=== PATIENT | female | born 1990 | race American Indian/Alaskan Native ===

== ENCOUNTER 2017-06-19 13:30 | Emergency (ER) | payer OTHER ==
[2017-06-19 15:27] LABS: Bilirubin,Urine Negative (Negative); Blood,Urine Negative (Negative); Ketones,Urine Negative (Negative); Leukocyte Esterase,Urine Small (Negative); Nitrite,Urine Negative (Negative); Protein,Urine <15 mg/dL mg/dL (Negative); Urobilinogen,Urine < 2.0 mg/dL (<2.0)
[2017-06-19 15:35] LABS: Bacteria,Urine 1+ /HPF (Negative)
[2017-06-19 15:36] LABS: Mucus,Urine 1+ /HPF
[2017-06-19] MEDS ORDERED: NACL 0.9% 1000 ML 1,000 ML IV ONE (20:16)
[2017-06-19] MEDS ORDERED: TORADOL IV ONE (20:16)
--- NOTE | 2017-06-19 20:23 | Emergency Department Report ---
ED Abdominal Pain HPI - General Chief Complaint: Urogenital-Female Stated Complaint: MOUTH/PELVIS/BACK PAIN Time Seen by Provider: 06/19/17 20:12 Source: patient Mode of arrival: Ambulatory Limitations: No Limitations - History of Present Illness Initial Comments: This is a 27-year-old female nontoxic, well nourished in appearance, no acute signs of distress presents to the ED with c/o of abdominal pain, pelvic pain, back pain, and toothache. Patient stated has been having a toothache x2 months but denies following up with a dentist. Denies any facial swelling, drooling, difficulty breathing, pus or drainage. Patient describes lower pelvic/ abdominal and back pain as aching intermittently for 3 weeks. Patient denies any fever, chills, nausea, vomiting, chest pain, short of breath, stiff neck, bladder or bowel stability, hematuria, dysuria, polyuria, vaginal bleeding, vaginal discharge, headache, numbness or tingling. Patient denies any allergies. Denies past medical history. MD Complaint: abdominal pain -: month(s) Radiation: none Migration to: no migration Severity: mild Severity scale (0 -10): 8 Quality: aching Consistency: constant Improves With: nothing Worsens With: nothing Associated Symptoms: denies other symptoms. denies: nausea, vomiting, diarrhea , fever, chills, constipation, dysuria, hematemesis, hematochezia, melena, hematuria, anorexia, syncope - Related Data Previous Rx's Medication Instructions Recorded Last Taken Type Amoxicillin/K Clav Tab [Augmentin 1 tab PO Q12HR #20 tab 06/19/17 Unknown Rx 875 mg] Chlorhexidine Mouthwash [Peridex] 15 ml MM BID 10 Days bottle 06/19/17 Unknown Rx Ibuprofen [Motrin] 600 mg PO Q8H PRN #30 tablet 06/19/17 Unknown Rx Allergies Allergy/AdvReac Type Severity Reaction Status Date / Time No Known Allergies Allergy Verified 06/19/17 20:49 ED Review of Systems ROS: Stated complaint: MOUTH/PELVIS/BACK PAIN Other details as noted in HPI Constitutional: denies: chills, fever Eyes: denies: eye pain, eye discharge, vision change ENT: dental pain. denies: ear pain, throat pain Respiratory: denies: cough, shortness of breath, wheezing Cardiovascular: denies: chest pain, palpitations Endocrine: no symptoms reported Gastrointestinal: abdominal pain, other (pelvic pain). denies: nausea, diarrhea Genitourinary: denies: urgency, dysuria, discharge Musculoskeletal: back pain. denies: joint swelling, arthralgia Skin: denies: rash, lesions Neurological: denies: headache, weakness, paresthesias Psychiatric: denies: anxiety, depression Hematological/Lymphatic: denies: easy bleeding, easy bruising ED Past Medical Hx - Past Medical History Previous Medical History?: No - Surgical History Past Surgical History?: No - Social History Smoking Status: Never Smoker Substance Use Type: None - Medications Home Medications: Home Medications Medication Instructions Recorded Confirmed Last Taken Type Amoxicillin/K Clav Tab [Augmentin 1 tab PO Q12HR #20 tab 06/19/17 Unknown Rx 875 mg] Chlorhexidine Mouthwash [Peridex] 15 ml MM BID 10 Days bottle 06/19/17 Unknown Rx Ibuprofen [Motrin] 600 mg PO Q8H PRN #30 tablet 06/19/17 Unknown Rx ED Physical Exam - General Limitations: No Limitations General appearance: alert, in no apparent distress - Head Head exam: Present: atraumatic, normocephalic - Eye Eye exam: Present: normal appearance, PERRL, EOMI. Absent: scleral icterus, conjunctival injection, nystagmus, periorbital swelling, periorbital tenderness Pupils: Present: normal accommodation - ENT ENT exam: Present: mucous membranes moist, TM's normal bilaterally, normal external ear exam - Expanded ENT Exam Expanded Mouth exam: Present: normal external inspection, tongue normal. Absent: drooling, trismus, muffled voice, tongue elevation, laceration Teeth exam: Present: dental caries, fractured tooth # (17), dental tenderness # (17), gingival enlargement, other (No abscess or swelling noted) 1 - Fractured, Dental Tenderness Throat exam: Positive: normal inspection. Negative: tonsillar erythema, tonsillomegaly, tonsillar exudate, R peritonsillar mass, L peritonsillar mass - Neck Neck exam: Present: normal inspection, full ROM. Absent: tenderness, meningismus, lymphadenopathy, thyromegaly - Respiratory Respiratory exam: Present: normal lung sounds bilaterally. Absent: respiratory distress, wheezes, rales, rhonchi, stridor, chest wall tenderness, accessory muscle use, decreased breath sounds, prolonged expiratory - Cardiovascular Cardiovascular Exam: Present: regular rate, normal rhythm, normal heart sounds. Absent: bradycardia, tachycardia, irregular rhythm, systolic murmur, diastolic murmur, rubs, gallop - GI/Abdominal GI/Abdominal exam: Present: soft, tenderness (pelvic pain), normal bowel sounds. Absent: distended, guarding, rebound, rigid, diminished bowel sounds, organomegaly - Expanded GI/Abdominal Exam Expanded GI/Abdominal exam: Absent: psoas sign, obturator sign, heel tap sign, Nino's sign, Rovsing's sign, tenderness at Mcburney's Point, ascites - Rectal Rectal exam: Present: deferred - Extremities Exam Extremities exam: Present: normal inspection, full ROM, normal capillary refill. Absent: tenderness, pedal edema, joint swelling, calf tenderness - Back Exam Back exam: Present: normal inspection, full ROM, paraspinal tenderness (lumbar region). Absent: tenderness, CVA tenderness (R), CVA tenderness (L), muscle spasm, vertebral tenderness, rash noted - Expanded Back Exam Expanded Back exam: Present: normal rectal tone (as per patient). Absent: saddle anesthesia Back exam: Negative Straight Leg Raising: Left, Right - Neurological Exam Neurological exam: Present: alert, oriented X3, CN II-XII intact, normal gait, reflexes normal - Psychiatric Psychiatric exam: Present: normal affect, normal mood - Skin Skin exam: Present: warm, dry, intact, normal color. Absent: rash ED Course Vital Signs 06/19/17 06/19/17 14:16 20:38 Temperature 98.9 F Pulse Rate 64 Respiratory 18 Rate Blood Pressure 134/56 O2 Sat by Pulse 100 Oximetry - Reevaluation(s) Reevaluation #1: 06/19/17 20:27 Patient is speaking in full sentences with no signs of distress noted. - Consultations Consultation #1: 06/20/17 00:44 Dr. Quiles has been consulted about patient history, physical exam, and imaging findings and agrees to the plan of care in the ED Consultation #2: 06/20/17 00:44 [place]. [place] [facility] [place] history, physical exam, and imaging findings and stated to get a doppler study of pelvis to rule out torsion and if normal to discharge with follow-up. ED Medical Decision Making - Lab Data Result diagrams: 06/19/17 20:23 06/19/17 20:23 - Medical Decision Making This is a 27-year-old female that presents with abdominal/pelvic pain and dental caries. Patient is stable and was examined by me. Laboratory obtained within normal limits. Vital signs stable. CT of abdomen/pelvis with contrast has been obtained and the radiologist with possible gallbaldder and cystic lesion in the right adnexal region in right ovarian cyst. Dr. Quiles consulted and agrees to plan of care in the ED and dischrage. US of pelvic and transvaginal obtained. Dr. Sarah [facility] [place] [place] and stated if doppler study negative for ovarina torison patient can f/u outpatient. US of pelvis/ transvaginal doppler obtained with no ovrian torison present. Patient refused wet prep and gonorrhea chlamydia. I instructed chioma the patient taht it is important that I examine patient for a possbile infection/STD but patient stated she refuses. Patient signed AMA form but I will still treat patient for other conditions. Patient is notified of x-ray results with her by the patient. Patient received 1 L of normal saline and 30 mg IV Toradol for his symptoms has improved and has subsided. Patient is discharged with Augmentin and Motrin due to dental caries and gingivitis. Patient was instructed Follow- up with a primary care doctor in 3-5 days or if symptoms worsen and continue return to emergency room as soon as possible. At time time of signing AMA, the patient does not seem toxic or ill in appearance. No acute signs of distress noted. Patient agrees to discharge treatment plan of care. No further questions noted by the patient. Critical care attestation.: If time is entered above; I have spent that time in minutes in the direct care of this critically ill patient, excluding procedure time. ED Disposition Clinical Impression: Pelvic pain, Dental caries, Gingivitis, Endometriosis Abdominal pain Qualifiers: Abdominal location: unspecified location Qualified Code(s): R10.9 - Unspecified abdominal pain Low back strain Qualifiers: Encounter type: initial encounter Qualified Code(s): S39.012A - Strain of muscle, fascia and tendon of lower back, initial encounter Ovarian cyst Qualifiers: Laterality: right Qualified Code(s): N83.201 - Unspecified ovarian cyst, right side Disposition: DC-07 LEFT AGAINST MED ADVICE Is pt being admited?: No Does the pt Need Aspirin: No Condition: Stable Instructions: Ibuprofen (By mouth), Amoxicillin/Clavulanate Potassium (By mouth ), Endometriosis (ED), Ovarian Cyst (ED) Additional Instructions: Follow-up with a primary care doctor/[facility] in 24 hours or if symptoms worsen and continue return to emergency room as soon as possible. Prescriptions: Amoxicillin/K Clav Tab [Augmentin 875 mg] 1 tab PO Q12HR #20 tab Chlorhexidine Mouthwash [Peridex] 15 ml MM BID 10 Days bottle Ibuprofen [Motrin] 600 mg PO Q8H PRN #30 tablet PRN Reason: Pain Referrals: [facility] [Outside] - 3-5 Days [facility] [Outside] - 3-5 Days [facility] [Provider Group] - 24 Hours BEE SARAH MD [Staff Physician] - 24 Hours KALE BUSCH MD [Staff Physician] - 24 Hours THONY RODAS MD [Staff Physician] - 24 Hours PRIMARY CAREMD [Primary Care Provider] - 24 Hours Forms: Work/School Release Form(ED), AMA Form
[2017-06-19 20:40] LABS: Hemoglobin 12.8 gm/dl (10.1-14.3); Mean Corpuscular HGB Conc 33 % (30-34); Mean Corpuscular Hemoglobin 30 pg (28-32); Mean Corpuscular Volume 90 fl (79-97); Platelet Count 260 K/mm3 (140-440); Red Blood Count 4.34 M/mm3 (3.65-5.03); Red Cell Distribution Width 13.5 % (13.2-15.2); White Blood Count 3.8 K/mm3 (4.5-11.0)
[2017-06-19] MEDS ORDERED: NACL ONE (20:51)
[2017-06-19 21:05] LABS: Alanine Aminotransferase 16 units/L (7-56); Albumin 3.9 g/dL (3.9-5); Albumin/Globulin Ratio 0.9 %; Alkaline Phosphatase 65 units/L (35-129); Anion Gap 15 mmol/L; BUN/Creatinine Ratio 16; Blood Urea Nitrogen 8 mg/dL (7-17); Calcium 9.1 mg/dL (8.4-10.2); Carbon Dioxide 27 mmol/L (22-30); Chloride 99.7 mmol/L (98-107); Glucose 72 mg/dL (65-100); Lipase 31 units/L (13-60); Potassium 4.3 mmol/L (3.6-5.0); Sodium 137 mmol/L (137-145); Total Protein 8.3 g/dL (6.3-8.2)
[2017-06-19 21:06] LABS: Bilirubin,Direct < 0.2 mg/dL (0-0.2)
[2017-06-19 21:28] LABS: Basophils % (Manual) 0 % (0.0-1.8); Blastocytes % (Manual) 0 %
[2017-06-19 21:29] LABS: Anisocytosis 1+; Diff Status Complete; Platelet Estimate Consistent w Auto; Poikilocytosis 1+
--- NOTE | 2017-06-19 21:51 | Cat Scan Report ---
FINAL REPORT PROCEDURE: CT ABDOMEN PELVIS W CON TECHNIQUE: Computerized axial tomography of the abdomen and pelvis was performed after the IV injection of iodinated nonionic contrast. HISTORY: abd pain COMPARISON: No prior studies are available for comparison. FINDINGS: Visualized lower thorax: No significant abnormality. Liver: Normal size and attenuation. Spleen: Normal size and attenuation. Gallbladder and biliary system: Multiple calculi are noted in the gallbladder and gallbladder is contracted.. Pancreas: Normal. Adrenals: Normal. Kidneys: Normal. GI tract: Normal. Lymph nodes and mesentery: Normal. Vasculature: Normal. Bladder: Normal. Reproductive organs: There are 2 cystic lesions in the right adnexal region larger measuring 3.7 by 3.4 centimeters and smaller measuring 3.7 x 1.6 centimeters.. Peritoneum: No free fluid. Musculoskeletal structures: No significant abnormality. Other: None. IMPRESSION: Contracted gallbladder with the calculi most likely represents the chronic cholecystitis. Ultrasound evaluation with 6 hours fasting is recommended. Cystic lesions in the right adnexal region most likely represent right ovarian cysts. Ultrasound evaluation is recommended.
--- NOTE | 2017-06-20 00:08 | Ultrasound Report ---
FINAL REPORT PROCEDURE: US TRANSVAGINAL TECHNIQUE: Real-time transvaginal sonography in multiple planes of the pelvis was performed with image documentation. This examination was performed without Doppler. Vascular abnormalities, including ovarian torsion, will not be detectable without Doppler evaluation. CPT 79427 HISTORY: pelvic pain COMPARISON: No prior studies are available for comparison. FINDINGS: UTERUS Size: 9 x 5 x 6 cm. Endometrial thickness: 7 mm. Orientation: anteverted. Cervix: Normal. Fibroids/masses: None. RIGHT Ovary: 5 x 5 x 6 cm. Appearance: A complex cystic lesion with internal echoes is identified measuring 3.9 x 3.1 centimeters. LEFT Ovary: 3 x 2 x 2 cm. Appearance: Normal. Pelvic fluid: None. Other: None. IMPRESSION: A complex cystic lesion is noted in the right ovary corresponding to the CT abnormality. This most likely represents a hemorrhagic cyst such as seen in endometriosis. Clinical correlation is recommended..
--- NOTE | 2017-06-20 00:15 | Ultrasound Report ---
FINAL REPORT EXAM: US PELVIC COMPLETE HISTORY: pelvic pain TECHNIQUE: Transvaginal imaging was obtained of the pelvis along with Doppler interrogation of the adnexa. FINDINGS: The uterus is anteverted measuring 8.8 cm x 4.7 cm x 6.2 cm. The myometrium is homogeneous. The endometrium is homogeneous and measures 7.2 millimeters in thickness. There is a very small amount of free fluid in the cul-de-sac. The right ovary is enlarged measuring 4.8 cm x 4.7 cm x 6.1 cm. There are multiple cysts in the right ovary the largest which is complex with internal echoes measuring 3.9 cm x 3.1 cm x 3.9 cm. Additional anechoic cysts are seen the right ovary measuring up to 2.3 cm in diameter. The blood flow to the right ovary otherwise is unremarkable. The left ovary measures 3.1 cm x 2.0 cm x 2.3 cm. The blood flow is normal. There are several follicles in the left ovary the largest measuring up to 1.4 cm in diameter. IMPRESSION: Bilateral ovarian cysts the largest which is complex with internal echoes in the right ovary measuring 3.9 cm in diameter. Follow-up pelvic sonogram is recommended after 2 menstrual cycles to evaluate for interval change. Very small amount of free fluid in the cul-de-sac. Normal appearing uterus and endometrium.
--- NOTE | 2017-06-20 02:36 | Ultrasound Report ---
FINAL REPORT EXAM: US PELVIS DUPLEX DOPPLER COMP HISTORY: pelvic pain TECHNIQUE: Repeat transvaginal imaging was obtained of the pelvis along with Doppler interrogation of the adnexa. Comparison is made to the previous study of 06/19/2017. FINDINGS: The uterus is anteverted measuring 9.3 cm x 4.1 cm x 4.1 cm. The endometrium is homogeneous measures 7.4 millimeters in thickness. The myometrium is homogeneous. Free fluid is not seen. The right ovary is enlarged measuring 6.1 cm x 3.6 cm x 5.3 cm. There are multiple functional cysts in the right ovary the largest measuring up to 3.9 cm in diameter containing internal echoes. The blood flow is normal to the right ovary. The left ovary measures 3.5 cm x 1.9 cm x 3.3 cm. There are multiple benign-appearing follicles in left ovary measuring up to 1.5 cm in diameter. The blood flow is normal to the left ovary. IMPRESSION: No evidence of ovarian torsion. Bilateral ovarian cysts as described the largest in the right ovary measuring 3.9 cm in diameter with internal echoes. Repeat examination is recommended in 2 menstrual cycles to evaluate for any interval changes. Normal appearing uterus and endometrium.
[2017-06-20 04:46] VITALS: BP 130/61
== END 2017-06-20 03:09 | disposition left against medical advice (07) ==
LOC: ED 13:30
DX: S39.012A Strain of muscle, fascia and tendon of lower back, initial encounter (principal); N80.9 Endometriosis, unspecified; K05.10 Chronic gingivitis, plaque induced; N83.201 Unspecified ovarian cyst, right side; X58.XXXA Exposure to other specified factors, initial encounter; Y93.89 Activity, other specified; Y92.89 Other specified places as the place of occurrence of the external cause; Y99.8 Other external cause status
CPT/HCPCS: 36415; 74177; 76830; 76856; 80048; 80074; 81001; 81025; 83690; 85007; 85025; 93975; 96361; 96374; 99284; J1885; J7030; Q9967

== ENCOUNTER 2017-07-26 09:43 | Emergency (ER) | payer SELFPAY ==
--- NOTE | 2017-07-26 17:49 | Emergency Department Report ---
ED ENT HPI - General Chief complaint: Dental/Oral Stated complaint: TOOTHACHE Time Seen by Provider: 07/26/17 17:28 Source: patient (Toothache and ear pain on and off for over a month. She visited the ER last month and was prescribed AB, mouth wash, and Motrin which helped a little but she could not go see a dentist because of lack of insurance. Associated with hearing impairment and heaviness in the ear. ) Mode of arrival: Ambulatory Limitations: No Limitations - Related Data Previous Rx's Medication Instructions Recorded Last Taken Type Amoxicillin/K Clav Tab [Augmentin 1 tab PO Q12HR #20 tab 06/19/17 Unknown Rx 875 mg] Chlorhexidine Mouthwash [Peridex] 15 ml MM BID 10 Days bottle 07/26/17 Unknown Rx Ciprofloxacin HCl [Cipro] 500 mg PO BID 10 Days tablet 07/26/17 Unknown Rx Ibuprofen [Motrin 600 MG tab] 600 mg PO Q8H PRN #30 tablet 07/26/17 Unknown Rx Allergies Allergy/AdvReac Type Severity Reaction Status Date / Time No Known Allergies Allergy Verified 06/19/17 20:49 ED Dental HPI - General Chief complaint: Dental/Oral Stated complaint: TOOTHACHE Time Seen by Provider: 07/26/17 17:28 Source: patient Mode of arrival: Ambulatory Limitations: No Limitations - Related Data Previous Rx's Medication Instructions Recorded Last Taken Type Amoxicillin/K Clav Tab [Augmentin 1 tab PO Q12HR #20 tab 06/19/17 Unknown Rx 875 mg] Chlorhexidine Mouthwash [Peridex] 15 ml MM BID 10 Days bottle 07/26/17 Unknown Rx Ciprofloxacin HCl [Cipro] 500 mg PO BID 10 Days tablet 07/26/17 Unknown Rx Ibuprofen [Motrin 600 MG tab] 600 mg PO Q8H PRN #30 tablet 07/26/17 Unknown Rx Allergies Allergy/AdvReac Type Severity Reaction Status Date / Time No Known Allergies Allergy Verified 06/19/17 20:49 ED Review of Systems ROS: Stated complaint: TOOTHACHE Other details as noted in HPI Constitutional: denies: chills, fever Eyes: denies: eye pain, eye discharge, vision change ENT: ear pain, congestion. denies: throat pain Respiratory: denies: cough, shortness of breath, wheezing Cardiovascular: denies: chest pain, palpitations Endocrine: no symptoms reported Gastrointestinal: denies: abdominal pain, nausea, diarrhea Genitourinary: denies: urgency, dysuria, discharge Musculoskeletal: denies: back pain, joint swelling, arthralgia Skin: denies: rash, lesions Neurological: denies: headache, weakness, paresthesias Psychiatric: denies: anxiety, depression Hematological/Lymphatic: denies: easy bleeding, easy bruising ED Past Medical Hx - Past Medical History Previous Medical History?: No - Surgical History Past Surgical History?: No - Social History Smoking Status: Current Every Day Smoker Substance Use Type: None - Medications Home Medications: Home Medications Medication Instructions Recorded Confirmed Last Taken Type Amoxicillin/K Clav Tab [Augmentin 1 tab PO Q12HR #20 tab 06/19/17 Unknown Rx 875 mg] Chlorhexidine Mouthwash [Peridex] 15 ml MM BID 10 Days bottle 07/26/17 Unknown Rx Ciprofloxacin HCl [Cipro] 500 mg PO BID 10 Days tablet 07/26/17 Unknown Rx Ibuprofen [Motrin 600 MG tab] 600 mg PO Q8H PRN #30 tablet 07/26/17 Unknown Rx ED Physical Exam - General Limitations: No Limitations General appearance: alert, in no apparent distress - Head Head exam: Present: atraumatic, normocephalic - Eye Eye exam: Present: normal appearance - ENT ENT exam: Present: normal orophraynx (except tender lower right premolar and a cavity of lower left 3rd molar. ), mucous membranes moist, TM's normal bilaterally - Neck Neck exam: Present: normal inspection - Respiratory Respiratory exam: Present: normal lung sounds bilaterally. Absent: respiratory distress - Cardiovascular Cardiovascular Exam: Present: regular rate, normal rhythm. Absent: systolic murmur, diastolic murmur, rubs, gallop - GI/Abdominal GI/Abdominal exam: Present: soft, normal bowel sounds - Extremities Exam Extremities exam: Present: normal inspection - Back Exam Back exam: Present: normal inspection - Neurological Exam Neurological exam: Present: alert, oriented X3 - Psychiatric Psychiatric exam: Present: normal affect, normal mood - Skin Skin exam: Present: warm, dry, intact, normal color. Absent: rash ED Course Vital Signs 07/26/17 11:51 Temperature 97.8 F Pulse Rate 80 Respiratory 16 Rate Blood Pressure 118/79 O2 Sat by Pulse 100 Oximetry Critical care attestation.: If time is entered above; I have spent that time in minutes in the direct care of this critically ill patient, excluding procedure time. ED Disposition Clinical Impression: Toothache Ear pain Qualifiers: Laterality: unspecified laterality Qualified Code(s): H92.09 - Otalgia, unspecified ear Disposition: - TO HOME OR SELFCARE Is pt being admited?: No Does the pt Need Aspirin: No Condition: Stable Prescriptions: Chlorhexidine Mouthwash [Peridex] 15 ml MM BID 10 Days bottle Ciprofloxacin HCl [Cipro] 500 mg PO BID 10 Days tablet Ibuprofen [Motrin 600 MG tab] 600 mg PO Q8H PRN #30 tablet PRN Reason: Pain Referrals: [facility] [Outside] - 3-5 Days
[2017-07-26 19:56] VITALS: BP 120/72
== END 2017-07-26 18:03 | disposition home or self-care (01) ==
LOC: ED 09:43
DX: K08.89 Other specified disorders of teeth and supporting structures (principal); F17.200 Nicotine dependence, unspecified, uncomplicated; H92.09 Otalgia, unspecified ear
CPT/HCPCS: 99282